=== PATIENT | female | born 1955 | race Caucasian/White ===

== ENCOUNTER 2021-08-29 15:25 | Outpatient (CLI) | payer MEDICARE, OTHER | END 2021-08-29 15:26 | disposition home or self-care (01) | LOC: CSHULT 15:25 | PROVIDERS: ATTEND Otolaryngology Plastic Surgery within the Head & Neck | DX: E04.1 Nontoxic single thyroid nodule (principal); E04.2 Nontoxic multinodular goiter | CPT/HCPCS: 76536 ==

== ENCOUNTER 2022-10-24 11:54 | Outpatient (CLI) | payer MEDICARE, OTHER | END 2022-10-24 11:55 | disposition home or self-care (01) | LOC: CSHULT 11:54 | PROVIDERS: ATTEND Otolaryngology Plastic Surgery within the Head & Neck | DX: E04.1 Nontoxic single thyroid nodule (principal); E04.2 Nontoxic multinodular goiter | CPT/HCPCS: 76536 ==